=== PATIENT | female | born 1945 | race Caucasian/White ===

== ENCOUNTER 2025-08-24 10:28 | Day surgery (SDC) | payer MEDICARE, SELFPAY ==
[2025-08-24] VITALS (9 sets, daily range): BP systolic 115–159; BP diastolic 71–85; BMI 26.8
[2025-08-24 10:56] LABS: Hematocrit 41.4 % (37.0-47.0); Hemoglobin 13.9 g/dL (12.0-16.0); Mean Corp Hgb Conc. 33.6 g/dL (33.0-37.0); Mean Corpuscular Volume 99.8 fL (81.0-99.0); Platelet Count 310 10^3/uL (130-400); Red Cell Dist. Width 13.9 % (11.5-14.5)
[2025-08-24 11:09] LABS: Blood Urea Nitrogen 18 mg/dl (7-17); Calcium 9.8 mg/dl (8.4-10.2); Carbon Dioxide 28 mmol/L (22-30); Chloride 101 mmol/L (98-107); Estimated Creatinine Clearance 57 ml/min; Glucose 123 mg/dl (70-99); Potassium 4.3 mmol/L (3.5-5.1); Sodium 138 mmol/L (135-145); eGFR > 60.00
--- NOTE | 2025-08-24 20:53 | ITS.CL.PN ---
Ticketing Clerk - Procedure Note
Procedure
Procedure Note:
CARDIAC CATHETERIZATION REPORT
Date of Procedure: 08/24/2025
Referring: Dr. Jonathan Paredes MD
Indication: positive cardiac stress test, preoperative assessment prior to intra-abdominal surgery
PROCEDURE(S)
1. left heart catheterization
2. coronary angiography
ACCESS: 6F right radial artery (closure: radial band)
CATHETERS
1. 6F JR4
2. 6F JL3.5
MODERATE SEDATION: 25 minutes of moderate sedation was utilized. An independent medical health researcher was present to assist with and help manage the patient's level of consciousness and physiologic status.
HEMODYNAMIC DATA
LV 126/8 (EDP 11) mmHg
AO 130/70 (mean 106) mmHg
CORONARY ANGIOGRAPHY
Dominance: Right
LM: Large, normal
LAD: Moderate caliber vessel giving rise to moderate caliber branching D1 and wrapping around the apex. There is a long segment of 50% stenosis in the proximal aspect of the D1 and otherwise mild luminal irregularities only.
LCx: Large vessel giving rise to a high rising large branching OM1/ramus and small OM 2. There are trivial luminal irregularities only.
RCA: Large vessel giving rise to a large RPDA, and multiple RPL branches. There is no coronary artery disease.
RADIATION: dose 131 mGy; DAP 6.25 Gy*cm2; fluoroscopy time 3.0 min
CONCLUSIONS
1. Single-vessel coronary artery disease with 60% stenosis in the ostium of a moderate caliber D1 and otherwise mild disease.
2. Normal LV filling pressure and no aortic stenosis
RECOMMENDATIONS
1. Medical management of asymptomatic coronary artery disease. Initiation of statin with rosuvastatin 20 mg.
2. Continue aspirin, beta-stella, and statin perioperatively for upcoming intra-abdominal surgery.
Copy to: Dr. Jonathan Paredes MD (internet database specialist); Hill Sesay MD (PCP)
Signed: Dannie Angelo MD, PhD
== END 2025-08-24 15:55 | disposition home or self-care (01) ==
LOC: CATH 10:28
PROVIDERS: ATTENDING PHYSICIAN Student in an Organized Health Care Education/Training Program; FAMILY PHYSICIAN Internal Medicine; OTHER PHYSICIAN Internal Medicine Cardiovascular Disease
DX: I25.10 Atherosclerotic heart disease of native coronary artery without angina pectoris (principal); R94.39 Abnormal result of other cardiovascular function study
CPT/HCPCS: 80048; 85027; 93458; 99152; 99153; C1769; C1894; Q9967